=== PATIENT | male | born 1970 | race Caucasian/White ===

== ENCOUNTER 2017-02-19 10:01 | Observation (INO) | payer MEDICARE, OTHER ==
[2017-02-19] MEDS ORDERED: IPRATROPIUM 0.5 MG/2.5 ML NEBU INHALATION STA (10:16)
[2017-02-19] MEDS ORDERED: SODIUM CHLORIDE 0.9% 500 ML IV STA (10:16)
[2017-02-19] MEDS ORDERED: ALBUTEROL NEBULIZED 2.5 MG/3 ML INHALATION STA (10:16)
[2017-02-19] MEDS ORDERED: methylPREDNISolone SOD SUCCI 125 MG/2 ML VIAL IV STA (10:16)
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
[2017-02-19 10:57] LABS: Basophils % (A) 0 %; CH 31.9; CHCM 34.4; Eosinophils # (A) 0.1 k/uL (0-0.7); Eosinophils % (A) 2 %; HCT 53.7 % (39.0-53.0); HDW 2.75; HGB 18.2 gm/dL (13.0-17.5); Luc # (Auto) 0.12; Luc % (Auto) 2; Lymphocytes # (A) 0.9 k/uL (1.0-4.8); Lymphocytes % (A) 16 %; MCH 31.4 pg (25.0-35.0); MCHC 33.8 g/dL (31.0-37.0); MCV 92.9 fL (80.0-100.0); Mean Platelet Volume 7.4; Monocytes # (A) 0.3 k/uL (0-1.0); Monocytes % (A) 4 %; Neutrophils # (A) 4.6 k/uL (1.3-7.7); Neutrophils % (A) 75 %; RBC 5.78 m/uL (4.30-5.90); RDW 14.3 % (11.5-15.5); WBC (Perox) 5.96
[2017-02-19 11:18] LABS: Creatine Kinase 53 U/L (55-170)
[2017-02-19 11:20] LABS: ALT 130 U/L (21-72); AST 75 U/L (17-59); Alkaline Phosphatase 113 U/L (38-126); Anion Gap 11 mmol/L; Blood Urea Nitrogen 9 mg/dL (9-20); Calcium 9.4 mg/dL (8.4-10.2); Carbon Dioxide 21 mmol/L (22-30); Chloride 109 mmol/L (98-107); Glucose 99 mg/dL (74-99); Magnesium 1.8 mg/dL (1.6-2.3); Non-African American GFR(MDRD) >60 (>60 ml/min/1.73 sqM); Potassium 4.2 mmol/L (3.5-5.1); Sodium 141 mmol/L (137-145); Total Bilirubin 0.6 mg/dL (0.2-1.3); Total Protein 7.2 g/dL (6.3-8.2)
[2017-02-19 11:31] LABS: Creatine Kinase MB 1.2 ng/mL (0.0-2.4); INR 1.2 (<1.2); Partial Thromboplastin Time 25.6 sec (22.0-30.0); Prothrombin Time 12.2 sec (9.0-12.0); Troponin I <0.012 ng/mL (0.000-0.034)
--- NOTE | 2017-02-19 11:40 | XR ---
EXAMINATION TYPE: XR chest 2V DATE OF EXAM: 02/19/2017 COMPARISON: Prior chest x-ray 03/13/2015 HISTORY: Difficulty breathing TECHNIQUE: Frontal and lateral views of the chest are obtained. FINDINGS: There is no focal air space opacity, pleural effusion, or pneumothorax seen. The cardiac silhouette size is within normal limits. There are overlying cardiac leads. There is bronchial wall thickening. The osseous structures are intact. IMPRESSION: Correlate for reactive airways disease, colitis.
[2017-02-19] MEDS ORDERED: IPRATROPIUM-ALBUTEROL 3 ML NEB INHALATION PRN (12:07)
[2017-02-19] MEDS ORDERED: LEVOFLOXACIN 500 MG TAB PO SCH (12:15)
[2017-02-19] MEDS: SODIUM CHLORIDE 0.9% 1,000 ML IV SCH (12:29)
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
[2017-02-19] MEDS: DOXYCYCLINE 50 MG CAP PO SCH (19:57)
[2017-02-20] MEDS: SODIUM CHLORIDE 0.9% 1,000 ML IV SCH (04:53)
[2017-02-20 07:27] VITALS: BP 163/99; PULSE 82; RESP 20; TEMP 98.1
[2017-02-20 08:25] LABS: CH 32.1; HCT 53.5 % (39.0-53.0); HDW 2.71; HGB 17.8 gm/dL (13.0-17.5); MCH 31.5 pg (25.0-35.0); MCHC 33.2 g/dL (31.0-37.0); MCV 94.7 fL (80.0-100.0); Mean Platelet Volume 7.4; RBC 5.65 m/uL (4.30-5.90); WBC 11.4 k/uL (3.8-10.6)
[2017-02-20] MEDS: DOXYCYCLINE 50 MG CAP PO SCH (08:35)
[2017-02-20 08:47] LABS: ALT 107 U/L (21-72); AST 51 U/L (17-59); Alkaline Phosphatase 97 U/L (38-126); Anion Gap 13 mmol/L; Blood Urea Nitrogen 11 mg/dL (9-20); Calcium 9.3 mg/dL (8.4-10.2); Carbon Dioxide 20 mmol/L (22-30); Chloride 107 mmol/L (98-107); Glucose 95 mg/dL (74-99); Non-African American GFR(MDRD) >60 (>60 ml/min/1.73 sqM); Potassium 4.1 mmol/L (3.5-5.1); Sodium 140 mmol/L (137-145); Total Bilirubin 0.6 mg/dL (0.2-1.3); Total Protein 7.2 g/dL (6.3-8.2)
[2017-02-20] MEDS ORDERED: predniSONE 20 MG TAB PO SCH (09:00)
--- NOTE | 2017-02-21 01:44 | P.DS ---
Providers Date of admission: 02/19/17 12:07 Expected date of discharge: 02/20/17 Attending physician: Travis Rob Primary care physician: Karthik Stevenson [facility] Course: Discharge diagnosis #1 possible COPD exacerbation: Tobacco cessation counseling was provided, patient was on systemic steroids and inhalational treatments. #2 tracheobronchitis bronchitis . Influenza PCR negative. #3 mild elevation of liver enzymes. Trending down #4 obesity 45-year-old the smokes about 5-6 cigarettes a day came in with complaints of difficulty breathing and wheezing found to have the reactive airway disease was subsequently admitted for COPD exacerbation patient was comparing of cough complaining of fever although he didn't have any fever here and chest x-ray did not show any pneumonic process patient is only able to bring up occasionally yellowish phlegm. Patient denied any dysuria nausea, vomiting. Patient was started on prednisone which is appropriate patient was comparing of flulike symptoms body aches myalgias was obtained with influenza A and B testing which came out nonreactive. Antibiotics switched to doxycycline from levofloxacin. Patient was never diagnosed with COPD. Patient was continued on IV steroids which have been changed to by mouth prednisone now. Continued on dual nebs and follow closely. Patient did improve symptomatically. Patient will be continued on antibiotic course. Patient was counseled extensively for smoking cessation. Otherwise patient is stable to be discharged home. Physical examination GENERAL: The patient is alert and oriented x3, not in any acute distress. Well developed, well nourished. HEENT: Pupils are round and equally reacting to light. EOMI. No scleral icterus. No conjunctival pallor. Normocephalic, atraumatic. No pharyngeal erythema. No thyromegaly. CARDIOVASCULAR: S1 and S2 present. No murmurs, rubs, or gallops. PULMONARY: No crackles . Nonlabored breathing. Mild wheezing with expiration. ABDOMEN: Soft, nontender, nondistended, normoactive bowel sounds. No palpable organomegaly. MUSCULOSKELETAL: No joint swelling or deformity. EXTREMITIES: No cyanosis, clubbing, or pedal edema. NEUROLOGICAL: Gross neurological examination did not reveal any focal deficits. SKIN: No rashes. Patient Condition at Discharge: Good Plan - Discharge Summary New Discharge Prescriptions: New Albuterol Inhaler [Ventolin Hfa Inhaler] 1 - 2 puff INHALATION Q6HR PRN #1 inhaler PRN Reason: Shortness Of Breath Or Wheezing Doxycycline [Vibramycin] 100 mg PO BID #8 cap predniSONE 40 mg PO DAILY 4 Days LORazepam [Ativan] 0.5 mg PO BID PRN #7 tab PRN Reason: Anxiety Discharge Medication List Albuterol Inhaler [Ventolin Hfa Inhaler] 1 - 2 puff INHALATION Q6HR PRN #1 inhaler 02/20/17 [Rx] Doxycycline [Vibramycin] 100 mg PO BID #8 cap 02/20/17 [Rx] LORazepam [Ativan] 0.5 mg PO BID PRN #7 tab 02/20/17 [Rx] predniSONE 40 mg PO DAILY 4 Days 02/20/17 [Rx] Follow up Appointment(s)/Referral(s): Doug Orta DO [REFERRING] - 02/25/17 2:00 pm Patient Instructions/Handouts: Doxycycline (By mouth), Lorazepam (By mouth), Albuterol (By breathing), Prednisone (By mouth), How to Stop Smoking (DC), Acute Bronchitis (GEN) Discharge Disposition: HOME SELF-CARE
== END 2017-02-20 15:00 | disposition home or self-care (01) ==
LOC: EC 10:01 → 5MS5E 12:07
PROVIDERS: ADMIT Internal Medicine; ATTEND Internal Medicine
DX: J20.9 Acute bronchitis, unspecified (principal); M79.1 Myalgia; R74.8 Abnormal levels of other serum enzymes; J45.909 Unspecified asthma, uncomplicated; F17.210 Nicotine dependence, cigarettes, uncomplicated; E66.9 Obesity, unspecified; Z68.27 Body mass index [BMI] 27.0-27.9, adult; Z87.01 Personal history of pneumonia (recurrent); Z86.14 Personal history of Methicillin resistant Staphylococcus aureus infection; Z82.49 Family history of ischemic heart disease and other diseases of the circulatory system; Z82.5 Family history of asthma and other chronic lower respiratory diseases
CPT/HCPCS: 99285; 96374; 96361; 36415; 94640; 93005; 80053 ×2; 82550; 82553; 83735; 84484; 85025; 85027; 85610; 85730; 87502; 71020; G0378 ×2; J2930; J7512

== ENCOUNTER 2020-11-02 18:36 | Emergency (ER) | payer MEDICARE ==
[2020-11-02 18:46] VITALS: RESP 18
[2020-11-02] MEDS ORDERED: ASPIRIN 81 MG PO STA (19:16)
[2020-11-02] MEDS ORDERED: ONDANSETRON 4 MG/2 ML VIAL IVP STA (19:17)
[2020-11-02] MEDS ORDERED: SODIUM CHLORIDE 0.9% 1,000 ML IV ONE (19:17)
[2020-11-02] MEDS ORDERED: FAMOTIDINE 20 MG/2 ML VIAL IV STA (19:17)
[2020-11-02] MEDS ORDERED: KETOROLAC 15 MG/ML 1 ML VIAL IVP STA (19:17)
[2020-11-02 19:46] LABS: Basophils % (A) 0 %; Eosinophils # (A) 0.1 k/uL (0-0.7); Eosinophils % (A) 1 %; HGB 16.3 gm/dL (13.0-17.5); Lymphocytes # (A) 0.9 k/uL (1.0-4.8); Lymphocytes % (A) 12 %; MCH 31.5 pg (25.0-35.0); MCHC 34.7 g/dL (31.0-37.0); MCV 90.7 fL (80.0-100.0); Mean Platelet Volume 7.3; Monocytes # (A) 0.3 k/uL (0-1.0); Monocytes % (A) 4 %; Neutrophils # (A) 6.2 k/uL (1.3-7.7); Neutrophils % (A) 81 %; Platelet Count 219 k/uL (150-450); RBC 5.18 m/uL (4.30-5.90); RDW 13.1 % (11.5-15.5); WBC 7.6 k/uL (3.8-10.6)
[2020-11-02 19:54] LABS: ALT 60 U/L (4-49); AST 51 U/L (17-59); African American GFR (CKD) >90 (>60 ml/min/1.73 sqM); Albumin 4.3 g/dL (3.5-5.0); Alcohol 27 mg/dL; Alkaline Phosphatase 122 U/L (38-126); Anion Gap 14 mmol/L; Blood Urea Nitrogen 8 mg/dL (9-20); Calcium 9.9 mg/dL (8.4-10.2); Carbon Dioxide 18 mmol/L (22-30); Chloride 111 mmol/L (98-107); Glucose 89 mg/dL (74-99); Non-African American GFR(CKD) >90 (>60 ml/min/1.73 sqM); Potassium 4.5 mmol/L (3.5-5.1); Sodium 143 mmol/L (137-145); Total Bilirubin 0.4 mg/dL (0.2-1.3); Total Protein 7.5 g/dL (6.3-8.2)
[2020-11-02 20:10] LABS: INR 1.1 (<1.2); Prothrombin Time 11.4 sec (9.0-12.0)
[2020-11-02 20:11] LABS: Partial Thromboplastin Time 25.2 sec (22.0-30.0)
--- NOTE | 2020-11-02 20:50 | XR ---
EXAMINATION TYPE: XR chest 1V portable DATE OF EXAM: 11/02/2020 COMPARISON: 02/19/2017 HISTORY: Short of breath TECHNIQUE: Single view FINDINGS: There is no heart failure nor confluent pneumonic infiltrate. Costophrenic angles are clear . There are no hilar masses. Bony thorax is intact. IMPRESSION: Normal chest.
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
[2020-11-02 22:06] VITALS: BP 139/99; PULSE 84; TEMP 98
== END 2020-11-02 22:12 | disposition home or self-care (01) ==
LOC: EC 18:36
DX: T40.1X1A Poisoning by heroin, accidental (unintentional), initial encounter (principal); F11.13 Opioid abuse with withdrawal; R07.89 Other chest pain; I10 Essential (primary) hypertension
CPT/HCPCS: 36415; 93005; 80053; 83735; 84484; 85025; 85610; 85730; 71045; 99285; 96374; 96375; 96361; G0480; J2405; J1885; 80320

== ENCOUNTER 2021-03-01 03:33 | Emergency (ER) | payer MEDICARE, OTHER ==
[2021-03-01 03:41] VITALS: RESP 18
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
--- NOTE | 2021-03-01 04:37 | XR ---
EXAMINATION TYPE: XR chest 1V DATE OF EXAM: 03/01/2021 COMPARISON: 02/19/2017 HISTORY: Fall. Pain. TECHNIQUE: Single view supine FINDINGS: Heart and mediastinum appear normal. Lungs are clear of infiltrate. There is no sign of a p leural effusion or pneumothorax. Bony thorax appears intact. IMPRESSION: No active cardiopulmonary disease. No adverse change.
--- NOTE | 2021-03-01 04:38 | XR ---
EXAMINATION TYPE: XR pelvis AP view DATE OF EXAM: 03/01/2021 COMPARISON: NONE HISTORY: Fall. Pain. TECHNIQUE: Single view FINDINGS: Pelvic ring is intact. There is intramedullary kaur and transverse screws fixing the proxima l left femur. Sacroiliac joints are intact. Hip joints are intact. IMPRESSION: No acute abnormality of the pelvis. No fracture seen.
--- NOTE | 2021-03-01 04:47 | XR ---
EXAMINATION TYPE: XR elbow complete LT DATE OF EXAM: 03/01/2021 COMPARISON: NONE HISTORY: Fall. Pain. TECHNIQUE: 3 views FINDINGS: I see no fracture nor dislocation. Elbow joint spaces are normal. There is no sign of elbow joint effusion. There is unusual linear 3 cm density projected over the lateral aspect of the distal humerus over the soft tissues on 2 views. IMPRESSION: No fracture seen. Possible soft tissue foreign body.
--- NOTE | 2021-03-01 04:48 | XR ---
EXAMINATION TYPE: XR wrist complete LT DATE OF EXAM: 03/01/2021 COMPARISON: NONE HISTORY: Fall. Pain TECHNIQUE: 3 views FINDINGS: There is impacted comminuted transverse fracture of the distal radius. Fracture line extend s to the radiocarpal joint. There is nondisplaced fracture of the ulnar styloid process. Carpal bones are intact. There is deformity of the fifth metacarpal related to old healed fracture. IMPRESSION: Comminuted impacted fracture distal radius. Ulnar styloid process nondisplaced fracture. No dislocation.
--- NOTE | 2021-03-01 04:51 | CT ---
EXAMINATION TYPE: CT brain tha howard DATE OF EXAM: 03/01/2021 COMPARISON: None HISTORY: fall CT DLP: 1440.8 mGycm Automated exposure control for dose reduction was used. Images of the brain and cervical spine without contrast. There is some cerebral cortical atrophy. There is no mass effect nor midline shift. There is no sign of intracranial hemorrhage. The calvarium is intact. There is normal aeration of the mastoid sinuses. Cervical vertebra have normal alignment. There is mild degenerative disc space narrowing at C4-5 with spurring of the endplates. There is multilevel cervical facet arthropathy. There is no compression f racture. IMPRESSION: Mild atrophy. No acute intracranial abnormality. No acute abnormality of the cervical spine. Mild degenerative disc changes at C4-5.
[2021-03-01] MEDS ORDERED: traMADol 50 MG STARTER PACK 3 TAB BTL PO STA (05:58)
[2021-03-01 06:10] VITALS: BP 144/97; PULSE 77; TEMP 98.2
== END 2021-03-01 06:11 | disposition home or self-care (01) ==
LOC: EC 03:33
DX: S52.502A Unspecified fracture of the lower end of left radius, initial encounter for closed fracture (principal); S00.81XA Abrasion of other part of head, initial encounter; I10 Essential (primary) hypertension; F17.200 Nicotine dependence, unspecified, uncomplicated; F12.90 Cannabis use, unspecified, uncomplicated; F11.90 Opioid use, unspecified, uncomplicated; F14.90 Cocaine use, unspecified, uncomplicated; F32.9 Major depressive disorder, single episode, unspecified; F41.9 Anxiety disorder, unspecified; Z79.1 Long term (current) use of non-steroidal anti-inflammatories (NSAID); Z79.51 Long term (current) use of inhaled steroids; Z79.899 Other long term (current) drug therapy; W01.0XXA Fall on same level from slipping, tripping and stumbling without subsequent striking against object, initial encounter; Y92.009 Unspecified place in unspecified non-institutional (private) residence as the place of occurrence of the external cause
CPT/HCPCS: 70450; 71045; 72125; 72170; 99284

== ENCOUNTER 2021-12-01 13:15 | Observation (INO) | payer SELFPAY ==
[2021-12-01 13:21] VITALS: TEMP 97.9
[2021-12-01] MEDS ORDERED: ASPIRIN 81 MG PO STA (13:29)
[2021-12-01] MEDS ORDERED: NITROGLYCERIN OINT 1 INCH/GM PACKET TOPICAL STA (13:29)
[2021-12-01] MEDS ORDERED: SODIUM CHLORIDE 0.9% 500 ML 500 ML IV STA (13:29)
[2021-12-01] MEDS ORDERED: ONDANSETRON 4 MG/2 ML VIAL IVP STA (13:39)
[2021-12-01 13:43] LABS: Basophils % (A) 0 %; Eosinophils # (A) 0.1 k/uL (0-0.7); Eosinophils % (A) 1 %; HCT 46.4 % (39.0-53.0); Lymphocytes # (A) 1.2 k/uL (1.0-4.8); Lymphocytes % (A) 14 %; MCH 28.8 pg (25.0-35.0); MCHC 32.4 g/dL (31.0-37.0); MCV 88.8 fL (80.0-100.0); Mean Platelet Volume 7.9; Monocytes # (A) 0.5 k/uL (0-1.0); Monocytes % (A) 6 %; Neutrophils # (A) 6.8 k/uL (1.3-7.7); Neutrophils % (A) 78 %; Platelet Count 209 k/uL (150-450); RBC 5.23 m/uL (4.30-5.90); RDW 14.1 % (11.5-15.5); WBC 8.8 k/uL (3.8-10.6)
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
[2021-12-01 13:56] LABS: Partial Thromboplastin Time 24.8 sec (22.0-30.0); Prothrombin Time 10.7 sec (9.0-12.0)
[2021-12-01 14:00] LABS: ALT 31 U/L (4-49); AST 34 U/L (17-59); African American GFR (CKD) >90 (>60 ml/min/1.73 sqM); Albumin 3.9 g/dL (3.5-5.0); Alkaline Phosphatase 159 U/L (38-126); Anion Gap 3 mmol/L; Blood Urea Nitrogen 13 mg/dL (9-20); Calcium 8.8 mg/dL (8.4-10.2); Carbon Dioxide 26 mmol/L (22-30); Chloride 111 mmol/L (98-107); Glucose 94 mg/dL (74-99); Magnesium 2.1 mg/dL (1.6-2.3); Non-African American GFR(CKD) >90 (>60 ml/min/1.73 sqM); Potassium 4.5 mmol/L (3.5-5.1); Sodium 140 mmol/L (137-145); Total Bilirubin 0.7 mg/dL (0.2-1.3)
--- NOTE | 2021-12-01 14:14 | XR ---
EXAMINATION TYPE: XR chest 2V DATE OF EXAM: 12/01/2021 COMPARISON: Chest x-ray 03/01/2021 HISTORY: Chest pain TECHNIQUE: Frontal and lateral views of the chest are obtained. FINDINGS: Cardiac mediastinal silhouette is stable. Prominence of the aorta is again noted. Posttrau matic changes are present in the upper right ribs. No evident pneumothorax or pleural effusion. There is a spinal curvature. There is thoracic spondylosis IMPRESSION: No acute cardiopulmonary process. Chronic aortic ectasia.
[2021-12-01 14:16] VITALS: RESP 18
[2021-12-01] MEDS ORDERED: NITROGLYCERIN SL TABS 0.4 MG TAB SUBLINGUAL PRN (15:47)
[2021-12-01 15:49] VITALS: BP 155/102; PULSE 60
[2021-12-01] MEDS ORDERED: NITROGLYCERIN OINT 1 INCH/GM PACKET TOPICAL SCH (18:00)
[2021-12-02] MEDS ORDERED: ASPIRIN 325 MG TAB PO SCH (09:00)
== END 2021-12-01 16:48 | disposition left against medical advice (07) ==
LOC: EC 13:15 → 6NMEDSUR 15:47
PROVIDERS: ADMIT Family Medicine; ATTEND Family Medicine
DX: R07.89 Other chest pain (principal); R06.02 Shortness of breath; R61 Generalized hyperhidrosis; R11.0 Nausea; F10.10 Alcohol abuse, uncomplicated; F17.200 Nicotine dependence, unspecified, uncomplicated; F32.A Depression, unspecified; F41.9 Anxiety disorder, unspecified; I77.819 Aortic ectasia, unspecified site; Z87.01 Personal history of pneumonia (recurrent); Z86.19 Personal history of other infectious and parasitic diseases; Z86.14 Personal history of Methicillin resistant Staphylococcus aureus infection; Z87.828 Personal history of other (healed) physical injury and trauma; Z98.890 Other specified postprocedural states; Z82.49 Family history of ischemic heart disease and other diseases of the circulatory system; Z82.5 Family history of asthma and other chronic lower respiratory diseases
CPT/HCPCS: 96374; 99285; 36415; 93005; 80053; 83735; 84484; 85025; 85610; 85730; 71046; G0378; J2405

== ENCOUNTER 2024-06-16 08:11 | Emergency (ER) | payer OTHER ==
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
[2024-06-16 08:56] LABS: Basophils % (A) 1 %; Eosinophils # (A) 0.3 k/uL (0-0.7); Eosinophils % (A) 5 %; HCT 45.5 % (39.0-53.0); HGB 15.8 gm/dL (13.0-17.5); Lymphocytes # (A) 1.4 k/uL (1.0-4.8); Lymphocytes % (A) 20 %; MCH 30.7 pg (25.0-35.0); MCHC 34.7 g/dL (31.0-37.0); MCV 88.5 fL (80.0-100.0); Mean Platelet Volume 8.3; Monocytes # (A) 0.3 k/uL (0-1.0); Monocytes % (A) 4 %; Neutrophils % (A) 70 %; Platelet Count 185 k/uL (150-450); RBC 5.14 m/uL (4.30-5.90); RDW 13.3 % (11.5-15.5); WBC 7.1 k/uL (3.8-10.6)
[2024-06-16 09:08] LABS: Partial Thromboplastin Time 26.9 sec (22.0-30.0); Prothrombin Time 10.8 sec (10.0-12.5)
[2024-06-16 09:11] LABS: ALT 106 U/L (4-49); AST 61 U/L (17-59); African American GFR (CKD) >90 (>60 ml/min/1.73 sqM); Albumin 4.1 g/dL (3.5-5.0); Alkaline Phosphatase 95 U/L (38-126); Anion Gap 8 mmol/L; Blood Urea Nitrogen 12 mg/dL (9-20); Calcium 9.2 mg/dL (8.4-10.2); Carbon Dioxide 27 mmol/L (22-30); Chloride 105 mmol/L (98-107); Glucose 107 mg/dL (74-99); Magnesium 1.9 mg/dL (1.6-2.3); Non-African American GFR(CKD) >90 (>60 ml/min/1.73 sqM); Potassium 4.4 mmol/L (3.5-5.1); Sodium 140 mmol/L (137-145); Total Bilirubin 0.5 mg/dL (0.2-1.3); Total Protein 7.1 g/dL (6.3-8.2)
[2024-06-16] MEDS: SODIUM CHLORIDE 0.9% 1,000 ML IV ONE (09:12)
--- NOTE | 2024-06-16 09:15 | CT ---
EXAMINATION TYPE: CT brain cspine wo con DATE OF EXAM: 06/16/2024 9:01 AM COMPARISON: 03/01/2021 CLINICAL INDICATION: Male, 53 years old with history of fall.dizzy.ROJO, FALL, NECK PAIN, pain TECHNIQUE: CT of the brain is performed utilizing 3 mm thick sections through the posterior fossa and 3 mm thick sections through the remaining calvarium. Study is performed within 24 hours of arrival to the hospital. Contrast used: mL of , (none if empty) CT DLP: 1331 mGycm, Automated exposure control for dose reduction was used. FINDINGS: No abnormal hyperdensity is present to suggest an acute intracranial hemorrhage. No mass lesion is evident. No acute infarcts are evident. Ventricles and sulci are appropriate for the patient age. Mucosal thickening is through maxillary sinuses. Some mucosal thickening within ethmoid air cells. Re maining paranasal sinuses and mastoid air cells are clear. IMPRESSIONS: 1. No acute intracranial process. Follow-up MRI can be performed as clinically indicated. CT cervical spine. COMPARISON: 03/01/2021 TECHNIQUE: CT of the cervical spine is performed in the axial plane at 2 mm thick sections. Reconstr ucted images in the coronal, and sagittal plane are reviewed on the computer. FINDINGS: No acute fractures are evident. There may be a minimal retrolisthesis or posterior endplate spurring C4 on C5. Disc space narrowing is present C4-5 and to a milder degree C5-6. Vertebral body heights are preserved. No spinal canal stenosis is evident. Left foraminal stenosis is present C5-6 IMPRESSION: 1. No acute osseous abnormality cervical spine. 2. Degenerative disc changes C4-5 C5-6. 3. Minimal retrolisthesis of C4 on C5 may be present. 4. Exam appears stable from comparison [facility], , 06/16/2024 9:13 AM
--- NOTE | 2024-06-16 09:27 | XR ---
EXAMINATION TYPE: XR wrist complete RT DATE OF EXAM: 06/16/2024 9:02 AM COMPARISON: 10/21/2011 CLINICAL INDICATION: Male, 53 years old with history of fall/pain, pain TECHNIQUE: 4 view(s) obtained. 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 There may be an old fracture o f the ulnar styloid. These findings are stable from comparison. Old fifth metacarpal fracture is evid ent. There may be some mild prominence of the scapholunate space. No acute fracture evident. There is some diffuse soft tissue swelling. IMPRESSION: 1. Diffuse soft tissue swelling. 2. No acute fracture identified. 3. Chronic prior fracture changes. [facility], , 06/16/2024 9:24 AM
[2024-06-16 09:42] LABS: Appearance,Urine Clear (Clear); Bilirubin,Urine Negative (Negative); Blood,Urine Negative (Negative); Color,Urine Colorless; Glucose,Urine (UA) Negative (Negative); Ketones,Urine Negative (Negative); Leukocyte Esterase,Urine Negative (Negative); Nitrite,Urine Negative (Negative); PH, Urine 6.5 (5.0-8.0); Protein,Urine Negative (Negative); Specific Gravity,Urine 1.005 (1.001-1.035); Urobilinogen,Urine <2.0 mg/dL (<2.0)
[2024-06-16] MEDS: amLODIPine 5 MG TAB PO STA (10:18)
[2024-06-16 12:09] VITALS: BP 155/109; PULSE 55; RESP 16; TEMP 98.7
== END 2024-06-16 12:08 | disposition home or self-care (01) ==
LOC: EC 08:11
DX: S06.0XAA Concussion with loss of consciousness status unknown, initial encounter (principal); R40.2142 Coma scale, eyes open, spontaneous, at arrival to emergency department; R40.2362 Coma scale, best motor response, obeys commands, at arrival to emergency department; R40.2252 Coma scale, best verbal response, oriented, at arrival to emergency department; I10 Essential (primary) hypertension; F17.200 Nicotine dependence, unspecified, uncomplicated; W19.XXXA Unspecified fall, initial encounter; W22.8XXA Striking against or struck by other objects, initial encounter
CPT/HCPCS: 36415; 70450; 72125; 80053; 81003; 83735; 85025; 85610; 85730; 93005; 96360; 99285